=== PATIENT | male | born 1955 | race Caucasian/White ===

== ENCOUNTER 2019-07-22 19:19 | Inpatient (IN) | payer BC, OTHER ==
[~2019-07-22] VITALS: Ht 180.3 cm; Wt 94.0 kg
[2019-07-22] MEDS ORDERED: ASPIRIN 81MG TABLET PO ONE (20:30)
[2019-07-22 21:37] LABS: CHLORIDE 105 mEq/L (98-107)
[2019-07-22 21:40] LABS: BASOPHILS % 0.4 % (0.0-2.0); EOSINOPHILS % 2.8 % (0.0-5.0); HEMATOCRIT. 51.9 % (42.0-52.0); HEMOGLOBIN. 17.6 g/dL (14.0-18.0); LYMPHOCYTES % 16.5 % (20.0-50.0); MEAN CORPUSCULAR HEMOGLOBIN 30.6 pg (28.0-32.0); MEAN CORPUSCULAR VOLUME 90.1 fL (80.0-94.0); MONOCYTES % 11.4 % (2.0-8.0); NEUTROPHILS % 68.9 % (40.0-76.0); PLATELET 240 x1000/uL (130-400); RED BLOOD CELL COUNT 5.76 mill/uL (4.7-6.1); RED CELL DISTRIBUTION WIDTH 13.2 % (11.6-14.6)
[2019-07-22] MEDS ORDERED: ENOXAPARIN 100MG/ML SYR SUBCUT ONE (22:15)
[2019-07-22] MEDS ORDERED: ACETAMINOPHEN 325MG TABLET PO PRN (23:47)
[2019-07-23] VITALS (9 sets, daily range): BP systolic 109–138; BP diastolic 44–90
[2019-07-23] MEDS ORDERED: SODIUM CHLORIDE 0.9% 500 ML IV ONE (00:30)
[2019-07-23] MEDS ORDERED: MAGNESIUM/ALUMINUM HYDROXIDE/SIMETHICONE 30ML UDC PO ONE (00:30)
[2019-07-23 05:17] LABS: BASOPHILS % 0.5 % (0.0-2.0); EOSINOPHILS % 3.2 % (0.0-5.0); HEMATOCRIT. 48.3 % (42.0-52.0); HEMOGLOBIN. 16.6 g/dL (14.0-18.0); LYMPHOCYTES % 23.8 % (20.0-50.0); MEAN CORPUSCULAR HEMOGLOBIN 30.7 pg (28.0-32.0); MEAN CORPUSCULAR VOLUME 89.5 fL (80.0-94.0); MEAN PLATELET VOLUME 8.2 fl (7.4-10.4); MONOCYTES % 11.1 % (2.0-8.0); NEUTROPHILS % 61.4 % (40.0-76.0); PLATELET 220 x1000/uL (130-400); RED BLOOD CELL COUNT 5.39 mill/uL (4.7-6.1); RED CELL DISTRIBUTION WIDTH 13.2 % (11.6-14.6)
[2019-07-23 05:23] LABS: CHLORIDE 106 mEq/L (98-107)
[2019-07-23] MEDS ORDERED: HEPARIN 5000 UNITS/ML VIAL IV NR (09:15)
[2019-07-23] MEDS ORDERED: IODIXANOL 320MG/ML 100 ML BOTTLE IV ONE (09:58)
[2019-07-23] MEDS ORDERED: ASPIRIN/SOD BICARB/CITRIC ACID 324MG TAB EFF ONE ×2 (09:58→10:29)
[2019-07-23] MEDS ORDERED: LIDOCAINE HCL 1% 20ML VIAL (Pyxis) INJ ONE (09:58)
[2019-07-23] MEDS ORDERED: MIDAZOLAM HCL 2 MG/2 ML VIAL ONE ×2 (10:36→10:44)
[2019-07-23] MEDS ORDERED: FENTANYL CITRATE/PF 50MCG/ML 2ML VIAL ONE (10:36)
[2019-07-23] MEDS ORDERED: CLOPIDOGREL 75MG TABLET ONE (11:11)
[2019-07-23] MEDS ORDERED: NITROGLYCERIN 50MCG/ML 10ML VIAL (CATH LAB) IV ONE (11:18)
[2019-07-23] MEDS ORDERED: HEPARIN SODIUM 1,000 UNIT/1ML VIAL IV ONE (11:18)
[2019-07-23] MEDS ORDERED: NICARDIPINE 100MCG/ML 10ML VIAL (CATH LAB) IV ONE (11:18)
[2019-07-23] MEDS ORDERED: ONDANSETRON HCL 4MG/2ML INJ IV PRN (11:30)
[2019-07-23] MEDS ORDERED: MORPHINE SULFATE 2 MG/ML CPJ (NOT FOR IM USE) IV PRN ×2 (11:30)
[2019-07-23] MEDS ORDERED: ATROPINE SULFATE 1MG/10ML SYR IV PRN (11:30)
[2019-07-23] MEDS ORDERED: SODIUM CHLORIDE 0.45% 1,000 ML IV ONE (11:30)
[2019-07-23] MEDS ORDERED: CLOPIDOGREL 75MG TABLET PO SCH (11:30)
[2019-07-23] MEDS ORDERED: AMOX1TAB16 MT (16:28)
[2019-07-23] MEDS ORDERED: NIAC500C8 PO (16:39)
[2019-07-23] MEDS ORDERED: ASPI-1497 PO (16:39)
[2019-07-23] MEDS ORDERED: VITAMIND (16:39)
[2019-07-23] MEDS ORDERED: SOTA80TA PO (16:39)
[2019-07-23] MEDS ORDERED: ASPI-986 PO (16:39)
[2019-07-23] MEDS ORDERED: VIT D3 PO (16:39)
[2019-07-23] MEDS ORDERED: CLOP75TA4 PO (16:40)
[2019-07-23] MEDS: ASPIRIN 81MG TABLET PO SCH (17:09)
[2019-07-23] MEDS: ENOXAPARIN 80MG/0.8ML SYR SUBCUT SCH (17:10)
[2019-07-23] MEDS ORDERED: MAGNESIUM/ALUMINUM HYDROXIDE/SIMETHICONE 30ML UDC PO SCH (17:15)
[2019-07-23] MEDS: AMOXICILLIN/POTASSIUM CLAVULANATE 875/125MG TAB PO SCH (21:31)
[2019-07-23] MEDS: SOTALOL HCL 80MG TABLET PO SCH (21:31)
[2019-07-23] MEDS: ATORVASTATIN CALCIUM 20MG TABLET PO SCH (21:31)
[2019-07-24] VITALS (15 sets, daily range): BP systolic 94–157; BP diastolic 28–90
[2019-07-24] MEDS: ENOXAPARIN 80MG/0.8ML SYR SUBCUT SCH ×2 (05:04→18:08)
[2019-07-24 07:09] LABS: BASOPHILS % 0.5 % (0.0-2.0); EOSINOPHILS % 3.4 % (0.0-5.0); HEMATOCRIT. 51.2 % (42.0-52.0); HEMOGLOBIN. 17.4 g/dL (14.0-18.0); LYMPHOCYTES % 20.2 % (20.0-50.0); MEAN CORPUSCULAR HEMOGLOBIN 30.5 pg (28.0-32.0); MEAN CORPUSCULAR VOLUME 89.4 fL (80.0-94.0); MEAN PLATELET VOLUME 8.4 fl (7.4-10.4); MONOCYTES % 12.2 % (2.0-8.0); NEUTROPHILS % 63.7 % (40.0-76.0); PLATELET 205 x1000/uL (130-400); RED BLOOD CELL COUNT 5.72 mill/uL (4.7-6.1); RED CELL DISTRIBUTION WIDTH 13.1 % (11.6-14.6)
[2019-07-24 07:22] LABS: CHLORIDE 108 mEq/L (98-107); TOTAL IRON BINDING CAPACITY 361 ug/dL (250-450)
[2019-07-24 07:55] LABS: VITAMIN B12 SERUM > 2000.0 pg/mL (211-911)
[2019-07-24] MEDS: AMOXICILLIN/POTASSIUM CLAVULANATE 875/125MG TAB PO SCH ×2 (09:11→22:30)
[2019-07-24] MEDS: CLOPIDOGREL 75MG TABLET PO SCH (09:12)
[2019-07-24] MEDS: ASPIRIN 81MG TABLET PO SCH ×2 (09:12→18:07)
[2019-07-24] MEDS: SOTALOL HCL 80MG TABLET PO SCH ×2 (09:12→22:30)
[2019-07-24] MEDS: ACETAMINOPHEN 325MG TABLET PO PRN (14:42)
[2019-07-24] MEDS: ATORVASTATIN CALCIUM 20MG TABLET PO SCH (22:30)
[2019-07-25] VITALS (18 sets, daily range): BP systolic 101–134; BP diastolic 54–81
[2019-07-25] MEDS ORDERED: MAGNESIUM/ALUMINUM HYDROXIDE/SIMETHICONE 30ML UDC PO PRN (00:30)
[2019-07-25] MEDS: ACETAMINOPHEN 325MG TABLET PO PRN (05:26)
[2019-07-25] MEDS: ENOXAPARIN 80MG/0.8ML SYR SUBCUT SCH ×2 (05:30→17:34)
[2019-07-25] MEDS: ASPIRIN 81MG TABLET PO SCH ×2 (08:21→17:34)
[2019-07-25] MEDS: AMOXICILLIN/POTASSIUM CLAVULANATE 875/125MG TAB PO SCH (08:21)
[2019-07-25] MEDS: SOTALOL HCL 80MG TABLET PO SCH ×2 (08:22→21:59)
[2019-07-25] MEDS: CLOPIDOGREL 75MG TABLET PO SCH (08:23)
[2019-07-25 09:17] LABS: BASOPHILS % 0.4 % (0.0-2.0); EOSINOPHILS % 3.5 % (0.0-5.0); HEMATOCRIT. 51.1 % (42.0-52.0); HEMOGLOBIN. 17.5 g/dL (14.0-18.0); MEAN CORPUSCULAR HEMOGLOBIN 30.7 pg (28.0-32.0); MEAN CORPUSCULAR VOLUME 89.7 fL (80.0-94.0); MEAN PLATELET VOLUME 7.9 fl (7.4-10.4); MONOCYTES % 7.7 % (2.0-8.0); NEUTROPHILS % 67.4 % (40.0-76.0); PLATELET 199 x1000/uL (130-400); RED CELL DISTRIBUTION WIDTH 13.1 % (11.6-14.6)
[2019-07-25 09:30] LABS: CHLORIDE 105 mEq/L (98-107)
[2019-07-25] MEDS: ATORVASTATIN CALCIUM 20MG TABLET PO SCH (21:59)
[2019-07-26] VITALS (11 sets, daily range): BP systolic 96–132; BP diastolic 39–96
[2019-07-26] MEDS: ACETAMINOPHEN 325MG TABLET PO PRN ×2 (02:15→23:27)
[2019-07-26] MEDS: ENOXAPARIN 80MG/0.8ML SYR SUBCUT SCH ×2 (06:39→18:54)
[2019-07-26 07:25] LABS: BASOPHILS % 0.6 % (0.0-2.0); EOSINOPHILS % 3.9 % (0.0-5.0); HEMATOCRIT. 55.5 % (42.0-52.0); HEMOGLOBIN. 19.1 g/dL (14.0-18.0); LYMPHOCYTES % 23.5 % (20.0-50.0); MEAN CORPUSCULAR HEMOGLOBIN 30.7 pg (28.0-32.0); MEAN CORPUSCULAR VOLUME 89.3 fL (80.0-94.0); MONOCYTES % 11.8 % (2.0-8.0); NEUTROPHILS % 60.2 % (40.0-76.0); PLATELET 218 x1000/uL (130-400); RED BLOOD CELL COUNT 6.22 mill/uL (4.7-6.1); RED CELL DISTRIBUTION WIDTH 13.2 % (11.6-14.6)
[2019-07-26 08:03] LABS: CHLORIDE 107 mEq/L (98-107)
[2019-07-26] MEDS: ASPIRIN 81MG TABLET PO SCH ×2 (08:52→18:53)
[2019-07-26] MEDS: CLOPIDOGREL 75MG TABLET PO SCH (08:52)
[2019-07-26] MEDS: SOTALOL HCL 80MG TABLET PO SCH ×2 (08:54→20:57)
[2019-07-26 16:11] LABS: BASOPHILS % 0.5 % (0.0-2.0); EOSINOPHILS % 4.3 % (0.0-5.0); HEMATOCRIT. 51.5 % (42.0-52.0); HEMOGLOBIN. 17.6 g/dL (14.0-18.0); LYMPHOCYTES % 22.7 % (20.0-50.0); MEAN CORPUSCULAR HEMOGLOBIN 30.8 pg (28.0-32.0); MEAN CORPUSCULAR VOLUME 89.8 fL (80.0-94.0); MEAN PLATELET VOLUME 8.3 fl (7.4-10.4); NEUTROPHILS % 60.5 % (40.0-76.0); PLATELET 205 x1000/uL (130-400); RED BLOOD CELL COUNT 5.74 mill/uL (4.7-6.1); RED CELL DISTRIBUTION WIDTH 13.3 % (11.6-14.6)
[2019-07-26 17:02] LABS: HEPATITIS B SURFACE ANTIGEN NEGATIVE
[2019-07-26 17:31] LABS: HEPATITIS A AB IGM NEGATIVE (NEGATIVE)
[2019-07-27] VITALS (10 sets, daily range): BP systolic 103–158; BP diastolic 62–78
[2019-07-27] MEDS: ENOXAPARIN 80MG/0.8ML SYR SUBCUT SCH ×2 (05:07→17:11)
[2019-07-27 06:42] LABS: BASOPHILS % 0.7 % (0.0-2.0); EOSINOPHILS % 3.9 % (0.0-5.0); HEMATOCRIT. 51.3 % (42.0-52.0); HEMOGLOBIN. 17.3 g/dL (14.0-18.0); LYMPHOCYTES % 25.2 % (20.0-50.0); MEAN CORPUSCULAR HEMOGLOBIN 30.3 pg (28.0-32.0); MEAN CORPUSCULAR VOLUME 89.6 fL (80.0-94.0); NEUTROPHILS % 56.2 % (40.0-76.0); PLATELET 209 x1000/uL (130-400); RED BLOOD CELL COUNT 5.72 mill/uL (4.7-6.1); RED CELL DISTRIBUTION WIDTH 13.2 % (11.6-14.6)
[2019-07-27] MEDS ORDERED: SODIUM CHLORIDE 0.45% 1,000 ML IV ONE ×2 (07:00→13:00)
[2019-07-27 07:53] LABS: CHLORIDE 107 mEq/L (98-107)
[2019-07-27] MEDS: CLOPIDOGREL 75MG TABLET PO SCH (08:20)
[2019-07-27] MEDS: ASPIRIN 81MG TABLET PO SCH ×2 (08:20→17:34)
[2019-07-27] MEDS: SOTALOL HCL 80MG TABLET PO SCH ×2 (08:24→20:42)
[2019-07-27] MEDS ORDERED: IODIXANOL 320MG/ML 100 ML BOTTLE IV ONE (10:46)
[2019-07-27] MEDS ORDERED: ASPIRIN/SOD BICARB/CITRIC ACID 324MG TAB EFF ONE (10:46)
[2019-07-27] MEDS ORDERED: NICARDIPINE 100MCG/ML 10ML VIAL (CATH LAB) IV ONE (10:54)
[2019-07-27] MEDS ORDERED: HEPARIN SODIUM 1,000 UNIT/1ML VIAL IV ONE (10:54)
[2019-07-27] MEDS ORDERED: NITROGLYCERIN 50MCG/ML 10ML VIAL (CATH LAB) IV ONE (10:54)
[2019-07-27] MEDS ORDERED: FENTANYL CITRATE/PF 50MCG/ML 2ML VIAL ONE (11:16)
[2019-07-27] MEDS ORDERED: MIDAZOLAM HCL 2 MG/2 ML VIAL ONE (11:16)
[2019-07-27] MEDS ORDERED: LIDOCAINE HCL 1% 20ML VIAL (Pyxis) INJ ONE (11:28)
[2019-07-27] MEDS ORDERED: IOHEXOL-300 100 ML BOTTLE ONE (11:30)
[2019-07-27] MEDS ORDERED: CLOPIDOGREL 75MG TABLET ONE (12:37)
[2019-07-27] MEDS ORDERED: ONDANSETRON HCL 4MG/2ML INJ IV PRN (13:00)
[2019-07-27] MEDS ORDERED: ATROPINE SULFATE 1MG/10ML SYR IV PRN (13:00)
[2019-07-27] MEDS ORDERED: CLOPIDOGREL 75MG TABLET PO SCH (13:00)
[2019-07-27] MEDS ORDERED: ACETAMINOPHEN 325MG TABLET PO PRN (13:00)
[2019-07-28] VITALS: BP 103/64
[2019-07-28 02:00] VITALS: BP 111/53
[2019-07-28 04:00] VITALS: BP 129/66
[2019-07-28 06:00] VITALS: BP 103/57
[2019-07-28] MEDS: ENOXAPARIN 80MG/0.8ML SYR SUBCUT SCH (06:00)
[2019-07-28 06:23] LABS: CHLORIDE 105 mEq/L (98-107); PROTHROMBIN TIME 10.8 sec (9.6-11.0)
[2019-07-28 06:31] LABS: BASOPHILS % 0.3 % (0.0-2.0); EOSINOPHILS % 3.2 % (0.0-5.0); HEMATOCRIT. 47.5 % (42.0-52.0); HEMOGLOBIN. 16.6 g/dL (14.0-18.0); LYMPHOCYTES % 15.8 % (20.0-50.0); MEAN CORPUSCULAR VOLUME 88.9 fL (80.0-94.0); MEAN PLATELET VOLUME 8.2 fl (7.4-10.4); NEUTROPHILS % 67.7 % (40.0-76.0); PLATELET 189 x1000/uL (130-400); RED BLOOD CELL COUNT 5.34 mill/uL (4.7-6.1)
[2019-07-28 07:50] VITALS: BP 124/77
[2019-07-28] MEDS ORDERED: CLOPIDOGREL 75MG TABLET PO SCH (09:00)
[2019-07-28] MEDS: CLOPIDOGREL 75MG TABLET PO SCH (09:32)
[2019-07-28] MEDS: SOTALOL HCL 80MG TABLET PO SCH (09:32)
[2019-07-28] MEDS: ASPIRIN 81MG TABLET PO SCH (09:33)
== END 2019-07-28 10:20 | disposition home or self-care (01) | DRG 246 ==
LOC: ER 19:19 → ORIP 23:44 → EDBEDREQSVC 23:47 → EDBEDREQ 23:47 → EDBEDREQTM 23:47 → 3WST 07-23 15:25
PROVIDERS: ADMIT Specialist; ATTEND Specialist
PROC: 4A023N7 Measurement of Cardiac Sampling and Pressure, Left Heart, Percutaneous Approach (ICD-10-PCS; 2019-07-23)
PROC: B2111ZZ Fluoroscopy of Multiple Coronary Arteries using Low Osmolar Contrast (ICD-10-PCS; 2019-07-23)
PROC: B2151ZZ Fluoroscopy of Left Heart using Low Osmolar Contrast (ICD-10-PCS; 2019-07-23)
PROC: 4A023N7 Measurement of Cardiac Sampling and Pressure, Left Heart, Percutaneous Approach (ICD-10-PCS; principal; 2019-07-27)
PROC: B2111ZZ Fluoroscopy of Multiple Coronary Arteries using Low Osmolar Contrast (ICD-10-PCS; 2019-07-27)
PROC: 027035Z Dilation of Coronary Artery, One Artery with Two Drug-eluting Intraluminal Devices, Percutaneous Approach (ICD-10-PCS; 2019-07-27)
PROC: 059Y3ZZ Drainage of Upper Vein, Percutaneous Approach (ICD-10-PCS; 2019-07-27)
DX: T82.855A Stenosis of coronary artery stent, initial encounter (principal); I21.4 Non-ST elevation (NSTEMI) myocardial infarction; E78.5 Hyperlipidemia, unspecified; I25.10 Atherosclerotic heart disease of native coronary artery without angina pectoris; T82.867A Thrombosis due to cardiac prosthetic devices, implants and grafts, initial encounter; R00.1 Bradycardia, unspecified; R79.89 Other specified abnormal findings of blood chemistry; Y83.1 Surgical operation with implant of artificial internal device as the cause of abnormal reaction of the patient, or of later complication, without mention of misadventure at the time of the procedure; D75.1 Secondary polycythemia; I10 Essential (primary) hypertension; I25.2 Old myocardial infarction; Y92.89 Other specified places as the place of occurrence of the external cause
CPT/HCPCS: 36415; 71045; 76700; 80048; 80053; 80076; 82607; 82668; 83540; 83550; 83880; 84443; 84484; 85025; 85347; 86705; 86709; 86803; 87340; 92928; 93005; 93454; 93458; 99285; C1725; C1769; C1874; C1887; C1893; J1644; J1650; J2250; J3010; J3490; J7040; Q9967

== ENCOUNTER → 2020-10-18 | Outpatient (CLI) | payer OTHER ==
[~2020-10-18] MED LIST: AMOX1TAB16 MT; ASPI-1497 PO; ASPI-986 PO; ATOR20TA65 PO; CALC300T4 MT; CEFAZOLIN SODIUM 1000MG/VIAL ONE; CLOP-31 PO; DEXAMETHASONE 4MG/ML 1ML VIAL ONE; EPHEDRINE SULFATE 50MG/ML VIAL ONE; FENTANYL CITRATE/PF 50MCG/ML 2ML VIAL ONE; GLYCOPYRROLATE 0.2 MG/ML 2ML VIAL ONE; LIDOCAINE HCL 1% 20ML VIAL (Pyxis) INJ ONE; MIDAZOLAM HCL 2 MG/2 ML VIAL ONE; NIAC500C8 PO; ONDANSETRON HCL 4MG/2ML INJ ONE; PROPOFOL 200MG/20ML VIAL IV ONE; SODIUM CHLORIDE 0.9% 10ML VIAL ONE; SOTA80TA PO; UBID50TA3 PO; VIT D3 PO; VITAMIND
== END | disposition home or self-care (01) ==
LOC: LAB 09:19
PROVIDERS: ATTEND Surgery
DX: Z01.812 Encounter for preprocedural laboratory examination (principal); Z20.822 Contact with and (suspected) exposure to COVID-19
CPT/HCPCS: 87426

== ENCOUNTER → 2020-10-19 | Day surgery (SDC) | payer OTHER ==
[~2020-10-19] VITALS: Ht 180.3 cm; Wt 93.0 kg
[~2020-10-19] MED LIST changes: +BUPIVACAINE HCL 0.5% (5MG/ML) 50ML ONE; -CEFAZOLIN SODIUM 1000MG/VIAL ONE; -DEXAMETHASONE 4MG/ML 1ML VIAL ONE; -EPHEDRINE SULFATE 50MG/ML VIAL ONE; -FENTANYL CITRATE/PF 50MCG/ML 2ML VIAL ONE; -GLYCOPYRROLATE 0.2 MG/ML 2ML VIAL ONE; +HYDROMORPHONE HCL/PF 2MG/ML CPJ IV PRN; +LABETALOL 5MG/ML SYR 20 MG/4 ML SYRINGE IV PRN; +LACTATED RINGERS 1,000 ML IV SCH; -LIDOCAINE HCL 1% 20ML VIAL (Pyxis) INJ ONE; +MEPERIDINE HCL/PF 25MG/ML CPJ IV PRN; -MIDAZOLAM HCL 2 MG/2 ML VIAL ONE; +ONDANSETRON HCL 4MG/2ML INJ IV PRN; -ONDANSETRON HCL 4MG/2ML INJ ONE; +POLYMYXIN B SULFATE 500000 UNITS/VIAL ONE; -PROPOFOL 200MG/20ML VIAL IV ONE; +SKIN ADHESIVE 0.7 GM EA TOP ONE; -SODIUM CHLORIDE 0.9% 10ML VIAL ONE
== END | disposition home or self-care (01) ==
LOC: OR 05:38
PROVIDERS: ATTEND Surgery
DX: K40.90 Unilateral inguinal hernia, without obstruction or gangrene, not specified as recurrent (principal); I25.10 Atherosclerotic heart disease of native coronary artery without angina pectoris; E78.00 Pure hypercholesterolemia, unspecified; Z79.82 Long term (current) use of aspirin; Z79.899 Other long term (current) drug therapy; Z72.89 Other problems related to lifestyle; Z98.890 Other specified postprocedural states
CPT/HCPCS: 49505; C1781; J0690; J1100; J2250; J2405; J2704; J3010; J3490

== ENCOUNTER 2021-09-18 06:07 | Inpatient (IN) | payer OTHER ==
[~2021-09-18] VITALS: Ht 180.3 cm; Wt 99.8 kg
[~2021-09-18 06:07] MED LIST changes: -BUPIVACAINE HCL 0.5% (5MG/ML) 50ML ONE; -HYDROMORPHONE HCL/PF 2MG/ML CPJ IV PRN; -LABETALOL 5MG/ML SYR 20 MG/4 ML SYRINGE IV PRN; -LACTATED RINGERS 1,000 ML IV SCH; -MEPERIDINE HCL/PF 25MG/ML CPJ IV PRN; -ONDANSETRON HCL 4MG/2ML INJ IV PRN; -POLYMYXIN B SULFATE 500000 UNITS/VIAL ONE; -SKIN ADHESIVE 0.7 GM EA TOP ONE
[2021-09-18 07:40] LABS: HEMATOCRIT 49.3 % (42.0-52.0); HEMOGLOBIN 16.7 g/dL (14.0-18.0); MEAN CORPUSCULAR HEMOGLOBIN 29.6 pg (28.0-32.0); MEAN CORPUSCULAR VOLUME 87.4 fL (80.0-94.0); PLATELET 209 x1000/uL (130-400); RED BLOOD CELL COUNT 5.64 mill/uL (4.7-6.1); RED CELL DISTRIBUTION WIDTH 13.9 % (11.6-14.6)
[2021-09-18 07:52] LABS: PARTIAL THROMBOPLASTIN TIME 27.6 sec (23.4-31.0); PROTHROMBIN TIME 10.6 sec (9.6-11.0)
[2021-09-18 07:54] LABS: CHLORIDE 107 mEq/L (98-107)
[2021-09-18] MEDS ORDERED: EVOL140P3 SQ (08:12)
[2021-09-18] MEDS ORDERED: LIDOCAINE HCL 1% 20ML VIAL (Pyxis) INJ ONE (08:38)
[2021-09-18] MEDS ORDERED: HEPARIN SODIUM 1,000 UNIT/1ML VIAL IV ONE (08:38)
[2021-09-18] MEDS ORDERED: ONDANSETRON HCL 4MG/2ML INJ ONE (09:04)
[2021-09-18] MEDS ORDERED: METOCLOPRAMIDE HCL 10MG/2ML VIAL ONE (09:04)
[2021-09-18] MEDS ORDERED: DEXAMETHASONE 4MG/ML 1ML VIAL ONE (09:04)
[2021-09-18] MEDS ORDERED: FAMOTIDINE 20MG/2ML VIAL IV ONE (09:05)
[2021-09-18] MEDS ORDERED: HEPARIN 1000 UNITS/ML 10ML ONE ×3 (10:09→11:09)
[2021-09-18] MEDS ORDERED: VASOPRESSIN 20 UNIT/ML 1ML IV NR (11:00)
[2021-09-18] MEDS ORDERED: NOREPINEPHRINE 8MG/250ML PMX 250 ML IV ONE (11:18)
[2021-09-18] MEDS ORDERED: DOPAMINE 400MG/250ML PREMIX 250 ML IV ONE (12:25)
[2021-09-18] MEDS ORDERED: DOBUTAMINE 250MG PREMIX 250 ML IV ONE (12:38)
[2021-09-18] MEDS ORDERED: ACETAMINOPHEN 325MG TABLET PO PRN (13:45)
[2021-09-18] MEDS ORDERED: ATROPINE SULFATE 1MG/10ML SYR IV PRN (13:45)
[2021-09-18 16:00] VITALS: BP 125/82
[2021-09-18 16:25] VITALS: BP 128/80
[2021-09-18] MEDS ORDERED: PNEUMOCOCCAL 23-VAL P-SAC VAC 0.5 ML IM ONE (16:45)
[2021-09-18] MEDS ORDERED: ATORVASTATIN CALCIUM 20MG TABLET PO SCH (17:00)
[2021-09-18 18:00] VITALS: BP 139/70
[2021-09-18 18:16] VITALS: BP 123/70
[2021-09-18] MEDS: SOTALOL HCL 80MG TABLET PO SCH (18:20)
[2021-09-18 20:00] VITALS: BP 114/66
[2021-09-18 22:00] VITALS: BP 125/75
[2021-09-19] VITALS (8 sets, daily range): BP systolic 107–148; BP diastolic 66–88
[2021-09-19 06:28] LABS: HEMATOCRIT. 43.3 % (42.0-52.0); HEMOGLOBIN. 14.7 g/dL (14.0-18.0); MEAN CORPUSCULAR HEMOGLOBIN 29.8 pg (28.0-32.0); MEAN CORPUSCULAR VOLUME 87.8 fL (80.0-94.0); MEAN PLATELET VOLUME 8.7 fl (7.4-10.4); PLATELET 205 x1000/uL (130-400); RED BLOOD CELL COUNT 4.93 mill/uL (4.7-6.1); RED CELL DISTRIBUTION WIDTH 13.9 % (11.6-14.6)
[2021-09-19 07:01] LABS: CHLORIDE 107 mEq/L (98-107)
[2021-09-19] MEDS: SOTALOL HCL 80MG TABLET PO SCH (08:41)
[2021-09-19] MEDS ORDERED: CLOPIDOGREL 75MG TABLET PO SCH (09:00)
[2021-09-19] MEDS ORDERED: ASPIRIN 81MG EC TABLET PO SCH (09:00)
[2021-09-19 09:40] LABS: PLATELET ESTIMATE NORMAL
[2021-09-19] MEDS ORDERED: ATORVASTATIN CALCIUM 20MG TABLET PO NR (10:00)
[2021-09-20] MEDS ORDERED: ATORVASTATIN CALCIUM 20MG TABLET PO SCH (09:00)
== END 2021-09-19 13:20 | disposition home or self-care (01) | DRG 274 ==
LOC: CCL 06:07 → 5EST 06:08
PROVIDERS: ADMIT Internal Medicine Clinical Cardiac Electrophysiology; ATTEND Internal Medicine Clinical Cardiac Electrophysiology
PROC: 4A0234Z Measurement of Cardiac Electrical Activity, Percutaneous Approach (ICD-10-PCS; principal; 2021-09-18)
PROC: 02583ZZ Destruction of Conduction Mechanism, Percutaneous Approach (ICD-10-PCS; 2021-09-18)
PROC: 02K83ZZ Map Conduction Mechanism, Percutaneous Approach (ICD-10-PCS; 2021-09-18)
DX: I49.3 Ventricular premature depolarization (principal); I47.2 Ventricular tachycardia; I25.5 Ischemic cardiomyopathy; I10 Essential (primary) hypertension; E78.5 Hyperlipidemia, unspecified; K76.0 Fatty (change of) liver, not elsewhere classified; D75.1 Secondary polycythemia; I25.2 Old myocardial infarction; I25.10 Atherosclerotic heart disease of native coronary artery without angina pectoris; N40.0 Benign prostatic hyperplasia without lower urinary tract symptoms; Z20.822 Contact with and (suspected) exposure to COVID-19; I77.9 Disorder of arteries and arterioles, unspecified; Z79.02 Long term (current) use of antithrombotics/antiplatelets; Z79.899 Other long term (current) drug therapy; Z87.891 Personal history of nicotine dependence; Z95.5 Presence of coronary angioplasty implant and graft
CPT/HCPCS: 36415; 80048; 85025; 85027; 85347; 87426; 90732; 93005; 93623; 93654; C1730; C1731; C1732; C1759; C1893; J1100; J1250; J1265; J1644; J2405; J2765; J3490